=== PATIENT | male | born 1975 | race Caucasian/White ===

== ENCOUNTER 2020-09-19 17:55 | Outpatient (REF) | payer OTHER, SELFPAY ==
[2020-09-19 20:06] LABS: SARS COV2 PCR INHOUSE NEGATIVE (Negative)
== END 2020-09-19 17:56 | disposition home or self-care (01) ==
LOC: HO.LAB 17:55
PROVIDERS: Visit Provider Internal Medicine
DX: Z20.828 Contact with and (suspected) exposure to other viral communicable diseases (principal)
CPT/HCPCS: 87635

== ENCOUNTER 2020-10-29 14:38 | Outpatient (REF) | payer OTHER, SELFPAY ==
[2020-10-29 18:22] LABS: COVID-19 Test Negative (Negative); IDNOW Serial# 55D5AD1C
== END 2020-10-29 14:39 | disposition home or self-care (01) ==
LOC: HO.EMPCOV 14:38
PROVIDERS: Visit Provider Internal Medicine
DX: Z20.828 Contact with and (suspected) exposure to other viral communicable diseases (principal)
CPT/HCPCS: 87635; C9803

== ENCOUNTER 2021-11-24 19:26 | Outpatient (REF) | payer OTHER, SELFPAY ==
[2021-11-24 20:03] LABS: COVID-19 Test Negative (Negative)
== END 2021-11-24 19:27 | disposition home or self-care (01) ==
LOC: HO.LAB 19:26
PROVIDERS: Visit Provider Internal Medicine
DX: Z20.822 Contact with and (suspected) exposure to COVID-19 (principal)
CPT/HCPCS: 36415; 87635

== ENCOUNTER 2022-06-22 07:17 | Outpatient (REF) | payer OTHER, SELFPAY ==
[2022-06-22 07:48] LABS: COVID-19 Test Negative (Negative); IDNOW Serial# 16C4AD1C
== END 2022-06-22 07:18 | disposition home or self-care (01) ==
LOC: HO.LAB 07:17
PROVIDERS: Visit Provider Internal Medicine
DX: Z20.822 Contact with and (suspected) exposure to COVID-19 (principal)
CPT/HCPCS: 87635

== ENCOUNTER 2022-07-11 17:52 | Outpatient (REF) | payer OTHER, SELFPAY ==
[2022-07-11 18:41] LABS: Influenza A PCR NEGATIVE (Negative); Influenza B PCR NEGATIVE (Negative); Resp Syncy Virus RNA Qual PCR NEGATIVE (Negative); SARS COV2 PCR INHOUSE POSITIVE (Negative)
== END 2022-07-11 17:53 | disposition home or self-care (01) ==
LOC: HO.LNP 17:52
DX: J02.9 Acute pharyngitis, unspecified (principal); Z20.822 Contact with and (suspected) exposure to COVID-19
CPT/HCPCS: 0241U

== ENCOUNTER → 2022-09-18 13:14 | Outpatient (RCR) | payer OTHER, SELFPAY ==
[2020-12-05 09:45] LABS: SARS-COV-2 PCR UMBRL Not Detected
== END | disposition home or self-care (01) ==
LOC: HO.EMPCOV 12-01 07:29
PROVIDERS: Visit Provider Internal Medicine
DX: Z20.828 Contact with and (suspected) exposure to other viral communicable diseases (principal)
CPT/HCPCS: C9803; U0003

== ENCOUNTER → 2025-04-10 11:46 | Outpatient (BNVA) | payer OTHER, SELFPAY | PROVIDERS: Visit Provider Physician Assistant Medical | DX: Z13.89 Encounter for screening for other disorder (principal) | CPT/HCPCS: 99202 ==